=== PATIENT | male | born 1960 | race Caucasian/White ===

== ENCOUNTER 2024-03-21 18:59 | Emergency (ER) | payer OTHER ==
[~2024-03-21] VITALS: Ht 188 cm; Wt 140.0 kg
[~2024-03-21 18:59] MED LIST: DIVA-139
[2024-03-21 19:36] LABS: Basophils # (auto) 0.1 10 ^3/uL (0-0.2); Basophils % (auto) 1.2 % (0.0-2.0); Eosinophils # (auto) 0 10 ^3/uL (0-0.8); Eosinophils % (auto) 0.3 % (0.0-7.0); Hematocrit 41.7 % (41.0-53.0); Hemoglobin 14.3 g/dL (13.5-17.5); Lymphocytes # (auto) 1.7 10 ^3/uL (0.4-5.4); Lymphocytes % (auto) 15.3 % (10.0-50.0); Mean Corpuscular Hgb Conc. 34.3 g/dL (32.0-36.0); Mean Corpuscular Volume 90.5 fL (80.0-100.0); Monocytes # (auto) 1.2 10 ^3/uL (0-1.3); Neutrophils % (auto) 72.2 % (37.0-80.0); Nucleated Red Blood Cells % 0.1 %; Red Blood Cells 4.61 10^6/uL (4.5-5.90); Red Cell Distribution Width 15.5 % (11.8-14.3); White Blood Cell 11.1 10^3/uL (4.4-10.8)
[2024-03-21 19:53] LABS: Alanine Aminotransferase 21 U/L (7-40); Albumin 3.7 g/dL (3.2-4.8); Alkaline Phosphatase 96 U/L (46-116); Anion Gap 9 (5-15); Aspartate Aminotransferase 31 U/L (13-40); BUN/Creatinine Ratio 17.5 (10.0-20.0); Blood Urea Nitrogen 11 mg/dL (9-23); Calcium 9.1 mg/dL (8.5-10.1); Carbon Dioxide 23 mmol/L (20-30); Chloride 108 mmol/L (98-107); Glucose 109 mg/dL (74-106); Potassium 3.3 mmol/L (3.5-5.1); Sodium 140 mmol/L (136-145)
[2024-03-21 19:54] LABS: Bilirubin, Total 0.6 mg/dL (0.2-1.0); Total Protein 6.4 g/dL (5.7-8.2)
[2024-03-21] MEDS: levETIRAcetam 1000 mg/100ml 100 ML IV ONE (22:49)
[2024-03-21] MEDS: levETIRAcetam 500 MG/5ML INJ IV ONE (22:50)
[2024-03-21] MEDS: SODIUM CHLORIDE 0.9% 1,000 ML IV ONE (23:00)
[2024-03-22] MEDS: POTASSIUM CHL 20 Meq TABLET PO ONE (00:39)
[2024-03-22 00:43] VITALS: BP 102/57; PULSE 79; RESP 16; TEMP 98.7; O2SAT 95
== END 2024-03-22 00:51 | disposition home or self-care (01) ==
LOC: EDUNIT# 18:59 → EDBD 18:59 → ER 18:59
DX: R56.9 Unspecified convulsions (principal); Z85.01 Personal history of malignant neoplasm of esophagus; Z90.49 Acquired absence of other specified parts of digestive tract
CPT/HCPCS: 36415; 80053; 84484; 85025; 93005; 96365; 99284; J1953; J7030; J7050